=== PATIENT | male | born 2000 | race Caucasian/White ===

== ENCOUNTER 2023-09-21 18:30 | Inpatient (IN) | payer BC ==
[~2023-09-21 18:30] MED LIST: Iopamidol 300 61% 100 ML VIAL FS ONE
[2023-09-21] MEDS ORDERED: Morphine 4 MG/ML VIAL ONE ×2 (19:14→20:38)
[2023-09-21 19:23] LABS: #Basophils 0.05 10x3/uL (0.0-0.2); #Eosinphils 0.07 10x3/uL (0.0-0.5); #Monocytes 0.84 10x3/uL (0.0-1.1); #Neutrophils 11.97 10x3/uL (1.5-8.4); %Basophils 0.3 % (0.0-2.0); %Eosinophils 0.5 % (0.0-6.0); %Lymphocytes 9.7 % (18.0-47.0); %Monocytes 5.8 % (0.0-10.0); %Neutrophils 83.3 % (40.0-75.0); Hematocrit 43.8 % (38.8-50.0); Hemoglobin 14.9 g/dL (13.5-17.5); Mean Corpuscular Hemoglobin 31.6 pg (27.0-33.0); Mean Platelet Volume 9.6 fl (7.4-10.4); Platelet Count 239 10x3/uL (150-450); RBC Distribution Width 12.9 % (11.5-14.5); Red Blood Cell (RBC) Count 4.71 10x6/uL (4.32-5.72); White Blood Cell (WBC) Count 14.4 10x3/uL (3.5-10.5)
[2023-09-21 19:38] LABS: ALT (SGPT) 33 U/L (8-55); AST (SGOT) 29 U/L (5-34); Albumin 4.4 g/dL (3.5-5.0); Alkaline Phosphatase 120 U/L (40-110); Anion Gap 14 mmol/L (10-20); BUN (Urea Nitrogen) 22 mg/dL (8.9-20.6); Bilirubin, Total 0.4 mg/dL (0.2-1.2); Calc. Creatinine Clearance 0 mL/min (70-130); Calcium 9.3 mg/dL (7.8-10.44); Carbon Dioxide 26 mmol/L (22-29); Chloride 103 mmol/L (98-107); Estimated GFR 112; Globulin 3.4 g/dL (2.4-3.5); Glucose 108 mg/dL (70-105); Lipase 9 U/L (8-78); Potassium 3.9 mmol/L (3.5-5.1); Protein, Total 7.8 g/dL (6.0-8.3); Sodium 139 mmol/L (136-145)
[2023-09-21] MEDS ORDERED: Piperacillin/Tazobactam 4.5 GM VIAL ONE (20:13)
[2023-09-21 20:20] LABS: PTT 24.5 sec (22.0-33.0)
[2023-09-21] MEDS ORDERED: Acetaminophen 325 MG TAB PO PRN (22:15)
[2023-09-21] MEDS ORDERED: Ondansetron ODT 4 MG TAB SL PRN (22:15)
[2023-09-21 22:19] VITALS: BMI 26.0
[2023-09-21] MEDS: Sodium Chloride 0.9% 1,000 ML IV SCH (22:24)
[2023-09-22] MEDS: Piperacillin/Tazobactam 3.375 GM in Sodium Chloride 0.9% 100 ML IVPB SCH ×2 (00:41→11:05)
[2023-09-22] MEDS: Morphine 2 MG/ML VIAL SLOW IVP PRN (05:56)
[2023-09-22] MEDS: Ondansetron PF 4 MG/2 ML Vial IVP PRN (05:56)
[2023-09-22] MEDS ORDERED: Morphine 2 MG/ML VIAL SLOW IVP PRN (06:53)
[2023-09-22] MEDS ORDERED: Ondansetron PF 4 MG/2 ML Vial IVP PRN (06:53)
[2023-09-22] MEDS ORDERED: Morphine 4 MG/ML VIAL SLOW IVP PRN (06:53)
[2023-09-22] MEDS ORDERED: Sodium Chloride 0.9% 1,000 ML IV SCH (07:00)
[2023-09-22] MEDS ORDERED: Bupivacaine PF 0.5% 30 ML VIAL ONE (07:12)
[2023-09-22] MEDS ORDERED: EPINEPHrine 1 MG/ML VIAL ONE (07:12)
[2023-09-22] MEDS ORDERED: PROPOFOL 0 ML ONE (08:54)
[2023-09-22] MEDS ORDERED: Ketorolac Tromethamine 30 MG (1 mL) VIAL ONE (08:54)
[2023-09-22] MEDS ORDERED: Ondansetron PF 4 MG/2 ML Vial ONE ×2 (08:54→10:04)
[2023-09-22] MEDS ORDERED: fentaNYL 50 mcg/mL 1 mL Vial ONE ×2 (08:54→09:21)
[2023-09-22] MEDS ORDERED: Esmolol 100 MG/10 ML VIAL ONE (08:54)
[2023-09-22] MEDS ORDERED: Dexamethasone 4 mg/ml Vial ONE ×2 (08:54→10:04)
[2023-09-22] MEDS ORDERED: Lidocaine 1% PF 5 ML VIAL ONE ×2 (08:54→10:04)
[2023-09-22] MEDS ORDERED: Rocuronium Bromide 10 MG/ML (10ML VIAL) ONE (08:54)
[2023-09-22] MEDS ORDERED: Midazolam HCl 2 mg/2 ml Vial ONE (08:54)
[2023-09-22] MEDS ORDERED: Piperacillin/Tazobactam 3.375 GM VIAL ONE (09:01)
[2023-09-22] MEDS ORDERED: PROPOFOL 20 ML ONE (10:03)
[2023-09-22] MEDS ORDERED: HYDROcodone/Acetaminophen 5/325 mg Tablet PO PRN (11:30)
[2023-09-22] MEDS ORDERED: Ibuprofen 400 MG TAB PO PRN (11:30)
[2023-09-22] MEDS ORDERED: Ibuprofen 800 MG TAB PO PRN (11:30)
[2023-09-22 11:51] VITALS: BP 131/74; TEMP 98.6
[2023-09-22] MEDS: HYDROcodone/Acetaminophen 5/325 mg Tablet PO PRN (11:52)
== END 2023-09-22 13:16 | disposition home or self-care (01) | DRG 399 ==
LOC: CSHERS 18:30 → CSHTELE 20:21
PROVIDERS: ADMIT Surgery; ATTEND Surgery
PROC: 0DTJ4ZZ Resection of Appendix, Percutaneous Endoscopic Approach (ICD-10-PCS; principal; 2023-09-22)
DX: K35.80 Unspecified acute appendicitis (principal); Z79.899 Other long term (current) drug therapy
CPT/HCPCS: 36415; 74177; 80053; 83690; 85025; 85610; 85730; 88304; 93005; 96374; 96375; 96376; C1776; J0171; J0665; J1100; J1885; J2250; J2270; J2272; J2405; J2543; J2704; J3010; J3490; J7050; Q9967